=== PATIENT | male | born 1955 | race Caucasian/White ===

== ENCOUNTER 2017-02-12 12:41 | Inpatient (IN) | payer MEDICARE ==
[~2017-02-12 12:41] MED LIST: ASPIRIN EC81 MG PO; AUGMENTIN 875-1 EACH PO; GLUCOPHAGE XR500 MG PO; LIPITOR20 MG PO; METOPROLOL TART25 MG PO
--- NOTE | 2017-02-13 12:17 | NUR ---
PICC LINE IS GOOD TO USE PER VINCE MOLINA RN PER FRANK Sandhu
--- NOTE | 2017-02-17 13:39 | NUR ---
1230 - PATIENT DISCHARGED HOME/MD ORDER. PICC LINE REMOVED. TELEMETRY REMOVED. APPTS. AND PRESCRIPTIONS GIVEN. AMBULATORY.
[2017-02-17] MEDS ORDERED: GLUCOPHAGE XR500 MG PO (14:00)
[2017-02-17] MEDS ORDERED: ASPIRIN EC81 MG PO (14:06)
[2017-02-17] MEDS ORDERED: METOPROLOL TART25 MG PO (14:06)
[2017-02-17] MEDS ORDERED: NITROQUICK0.4 MG SL (14:07)
[2017-02-17] MEDS ORDERED: LISINOPRIL40 MG PO (14:07)
[2017-02-17] MEDS ORDERED: LIPITOR20 MG PO (14:07)
[2017-02-17] MEDS ORDERED: AUGMENTIN 875-1 EACH PO (14:08)
== END 2017-02-17 12:30 | disposition home or self-care (01) | DRG 190 ==
LOC: ER 12:41 → MED 19:43
PROVIDERS: ADMIT Internal Medicine
PROC: 02HV33Z Insertion of Infusion Device into Superior Vena Cava, Percutaneous Approach (ICD-10-PCS; principal; 2017-02-13)
PROC: B548ZZA Ultrasonography of Superior Vena Cava, Guidance (ICD-10-PCS; 2017-02-13)
DX: J44.0 Chronic obstructive pulmonary disease with (acute) lower respiratory infection (principal); J18.9 Pneumonia, unspecified organism; N17.9 Acute kidney failure, unspecified; R07.9 Chest pain, unspecified; I44.7 Left bundle-branch block, unspecified; E11.9 Type 2 diabetes mellitus without complications; D64.9 Anemia, unspecified; Y95 Nosocomial condition; I10 Essential (primary) hypertension; I25.10 Atherosclerotic heart disease of native coronary artery without angina pectoris; Z95.1 Presence of aortocoronary bypass graft; Z95.5 Presence of coronary angioplasty implant and graft; E78.5 Hyperlipidemia, unspecified; F17.210 Nicotine dependence, cigarettes, uncomplicated; Z90.49 Acquired absence of other specified parts of digestive tract; Z88.5 Allergy status to narcotic agent; Z95.4 Presence of other heart-valve replacement; Z79.84 Long term (current) use of oral hypoglycemic drugs
CPT/HCPCS: 36415; 87502; 94664; C1751; J1650; J3370; J7050

== ENCOUNTER → 2017-02-12 12:42 | Emergency (ER) | payer MEDICARE ==
[~2017-02-12 12:42] MED LIST changes: +LISINOPRIL40 MG PO; +NITROQUICK0.4 MG SL
== END | disposition admitted as inpatient to this hospital (09) ==
LOC: ER 12:42
DX: J18.1 Lobar pneumonia, unspecified organism (principal); I10 Essential (primary) hypertension; I25.2 Old myocardial infarction; Z90.49 Acquired absence of other specified parts of digestive tract; Z79.84 Long term (current) use of oral hypoglycemic drugs; Z88.5 Allergy status to narcotic agent
CPT/HCPCS: 96365; 96375